=== PATIENT | female | born 1975 | race Caucasian/White ===

== ENCOUNTER 2023-09-16 19:01 | Observation (INO) | payer OTHER, SELFPAY ==
--- NOTE | 2023-09-05 17:11 | HP.PCM_ITS ---
History and Physical Date of Admission: 09/16/23 HPI: The patient is a 48 year old female presenting for pre-operative visit. She is scheduled for total laparoscopic hysterectomy with cystoscopy and bilateral salpingectomy. Possible conversion to total abdominal hysterectomy, possible mini laparotomy to morcellate uterus versus morcellation through the vagina., for uterine fibroids, abnormal uterine bleeding, failed Mirena IUD, pelvic pressure and bleeding due to fibroids on 09/16/23. Procedure discussed along with risks, benefits and complications. Other alternatives discussed for management. Consent form signed? Yes. ? ? PAST MEDICAL HISTORY PAST MEDICAL HISTORY Diagnosis Date ? Abdominal pain, right upper quadrant ? ? Abdominal pain, unspecified site ? ? Acute gastritis without mention of hemorrhage ? ? Encounter for insertion of mirena IUD 03/25/2011 ? Gilbert's syndrome ? ? Hypoglycemia, unspecified ? ? Personal history of urinary calculi ? ? PMH - PAST MEDICAL HISTORY OF ? ? high bilirubin ? ? PAST SURGICAL HISTORY PAST SURGICAL HISTORY Procedure Laterality Date ? EGD TRANSORAL BIOPSY SINGLE/MULTIPLE ? 08/13/08 ? MIRENA IUD ? 03/25/2011 ? URETEROTOMY INSERTION INDWELLING STENT ALL TYPES ? ? ? . There is a plastic bag ? CURRENT MEDICATIONS Current Outpatient Medications Medication Sig Dispense Refill ? fexofenadine HCl (SHERI ALLERGY ORAL) Take 1 tablet by mouth once daily. ? ? ? Olopatadine (PATADAY ONCE DAILY RELIEF) 0.2 % drop Use 1 Drop in both eyes twice daily. 5 mL 5 ? levonorgestrel (MIRENA) 20 mcg/24 hours (7 yrs) 52 mg IUD 1 Each by INTRAUTERINE route as directed. 1 Each 0 ? omeprazole (PRILOSEC) 20 mg capsule Take 1 capsule by mouth daily before breakfast. 1/2 hr before meal. 30 capsule 2 ? No current facility-administered medications for this visit. ? ? ALLERGIES: Cipro [Ciprofloxacin], Seasonal Allergies, and Singulair [Montelukast Sodium] ? PERSONAL HISTORY: SOCIAL HISTORY Social History ? Tobacco Use ? Smoking status: Never ? Smokeless tobacco: Never Vaping Use ? Vaping Use: Never used Substance Use Topics ? Alcohol use: Yes ? ? Comment: Occassionally ? Drug use: No ? FAMILY HISTORY: FAMILY HISTORY FAMILY HISTORY Problem Relation Age of Onset ? Thyroid Mother ? ? Breast Cancer Paternal Grandmother ? ? older ? Diabetes Maternal Aunt ? ? Heart Maternal Grandfather ? ? [place] ? Cancer Maternal Grandmother ? ? ? GENERAL: denies fevers or chills ENDOCRINOLOGY: has not been on steroids Cardiology : denies palpitations or chest pain Respiratory: denies SOB or cough Hematology: denies history of prolonged bleeding or easy bruising or VTE Allergy: Denies history of personal or family history of allergy to anesthesia ? PHYSICAL EXAMINATION: ? VITALS: Last menstrual period 02/19/2011. ? GENERAL: The patient is well nourished, well hydrated in no acute distress. , The patient is oriented to time, place, and person. NECK: Supple. No lynphadenopathy, normal thyroid, no thyromegaly. LUNGS: Clear to auscultation bilaterally. no wheezes, rhonchi or rales HEART: Regular rate and rhythm, Normal heart sounds, and No murmurs or gallops GENITALIA: Normal external genitalia, Urethral meatus normal, Bladder nontender, normal vagina and normal vaginal tone, normal cervix, normal uterus, size and consistency, normal adnexa without masses or tenderness, and perineum WNL WET PREP: Not indicated ? IMPRESSION: symptomatic uterine fibroids resulting in AUB, pelvic pressure sympomts and bloating ? PLAN: The risks/benefits/alternatives and personal involved for the planned total laparoscopic hysterectomy bilateral salpingectomy and cystoscopy, possible conversion to total abdominal hysterectomy, possible morcellation of the uterus through mini laparotomy with uterine morcellation through this or morcellation through the vagina the patient. Were reviewed with the patient. Her questions were answered to her satisfaction and she desires to proceed. Consent was signed. I reviewed with her postop instructions and expectations. ? ? I have reviewed and updated past medical and surgical history, medications and allergies DATE OF EXAM: Jun 23 2023 ?9:38AM ? WRU ? 1060 ?- ?US FEMALE PELVIS TRANSVAG ?/ PROCEDURE REASON: Uterine leiomyoma, unspecified location ?? ? * * * * Physician Interpretation * * * * ?EXAMINATION: ? TRANSVAGINAL AND LIMITED TRANSABDOMINAL FEMALE PELVIC ULTRASOUND CLINICAL HISTORY: Uterine fibroid. ?LMP: 05/22/2023 TECHNIQUE: Sonography of the pelvis was performed by transvaginal and transabdominal (limited) techniques. ?Images were obtained and stored in a permanent archive. MQ: ?[facility]_2021 COMPARISON: Ultrasound pelvis on 10/31/2020 RESULT: Bowel gas. Uterus: ?? ? -Size: 15.9 x 8.9 x 14.4 cm ?? ? -Orientation: Anteverted ?? ? -Endometrial echo complex: Evaluation of the endometrium was adequate. No endometrial abnormality. The endometrial echo complex measured 1.5 cm. An IUD is visualized in the endometrial canal, extending to the lower uterine segment, uncertain if it is related to large fibroid in the fundus and upper uterine body. ?? ? -Cervix: Unremarkable. ?? ? -Adenomyosis assessment: There are no sonographic findings of adenomyosis. ?? ? -Fibroids: Multiple fibroids identified. ?A large fibroid is again noted in the fundus and upper uterine body measuring 8.6 x 11.3 x 11 cm, previously 7.5 x 5.8 x 7.0 cm. ?2 smaller fibroids are visualized in the left uterine body, measuring 3.9 x 3.5 x 3.4 cm and 3.7 x 3.0 x 3.1 cm. Right Ovary: Not visualized. Left Ovary: Not visualized. Free Fluid: No abnormal free fluid is present. Assessment & Plan Assessment/Plan (1) Uterine fibroid: (2) Abnormal uterine bleeding (AUB): (3) Pelvic pressure in female:
[2023-09-12 16:32] LABS: Hematocrit 43.8 % (37-47); Hemoglobin 14.5 g/dL (12.0-15.0); Mean Corp Hgb Conc 33.1 g/dL (32-36); Mean Corpuscular Hgb 30.7 pg (27.0-32.0); Mean Corpuscular Volume 92.6 fL (81-99); Mean Platelet Vol. 9.2 fl (6.2-12.0); Platelet Count 283 K/mm3 (150-450); RBC Distribution Width CV 11.8 % (11.6-14.6); RBC Distribution Width SD 40.5 fl (35.1-43.9); Red Blood Count 4.73 M/mm3 (4.2-5.4); White Blood Count 5.3 K/mm3 (4.4-11.0)
[2023-09-12 17:00] LABS: Anion Gap 3 (5-15); BUN 12 mg/dL (7-18); BUN/Creat Ratio 19.9 RATIO (10-20); Calcium,Total 8.6 mg/dL (8.5-10.1); Chloride 108 mmol/L (98-107); EST Glomerular Filtration Rate 112 mL/min (>60); Est Glom Filt Rate - Afr Amer 136 mL/min (>60); Glucose 102 mg/dL (74-106); Magnesium 2.3 mg/dL (1.6-2.6); Potassium 3.8 mmol/L (3.5-5.1); Sodium Level 138 mmol/L (136-145)
[2023-09-16] VITALS (20 sets, daily range): BP systolic 94–126; BP diastolic 59–94; PULSE 65–96; RESP 10–18; TEMP 36.1–37.3; O2SAT 94–100; BMI 23.4; BMI 23.8
[2023-09-16 06:02] LABS: Internal QC Validated? YES +Cl - CLEAR BKGD; Pregnancy, Urine Negative Negative
[2023-09-16] MEDS: Lactated Ringers 1,000 ML 40 ML IV (06:06)
[2023-09-16] MEDS: Magnesium 1 GM over 15 mins IV (06:07)
[2023-09-16] MEDS: Phenazopyridine 95 MG Tablet 190 MG PO (06:23)
[2023-09-16] MEDS: Celecoxib 200 MG Capsule 400 MG PO (06:23)
[2023-09-16] MEDS: Acetaminophen 500 MG Tablet 1000 MG PO ×3 (06:23→22:43)
[2023-09-16] MEDS: Gabapentin 600 MG Tablet PO (06:23)
[2023-09-16] MEDS: Enoxaparin 40 MG/0.4 ML Syringe SC (06:24)
[2023-09-16] MEDS: Scopolamine 1mg/72hr Patch 1 PATCH TD (06:24)
[2023-09-16 06:50] LABS: Bedside Glucose 81 mg/dL (74-106)
--- NOTE | 2023-09-16 07:30 | HYST_PTH ---
PATIENT: LUCAS CASTRO LOC: MS3 U#:[id number] AGE/SX: 48/F ROOM: RI314 RE09/16/[address]: Dr. Sarah Bliss MD : 1975 BED: 1 DIS: 09/17/2023 SPEC #: [id number] RECD: 09/16/23 10:40 STATUS: HÉCTOR REConrado #: [id number] DELMI: 09/16/23 07:[address]: Sarah Bliss DEPT: SURGICAL PATHOLOGY RECD BY: Prerna Horowitz ENTERED: 09/16/23 11:11 SP TYPE: HYSTERECT OTHR DR: Dr. Timbo Reich MD Tissues: Uterus, NOS Procedures: Surgery Specimen Level V HEADER OPERATION: ERAS, diagnostic laparoscopy, possible total laparoscopic hysterectomy PRE-OP DIAGNOSIS: Abnormal uterine bleeding TISSUE SUBMITTED: Cervix, uterus, bilateral fallopian tubes and left ovary MICROSCOPIC DIAGNOSIS Uterus, hysterectomy: Cervix - squamous metaplasia and minimal chronic inflammation. Endometrium - scant unremarkable endometrium. Myometrium - leiomyomas. Fallopian tubes - benign paratubal cysts. Ovary - hemorrhagic corpus luteal cysts. AM:saida 09/19/2023 COMMENT Case has been reviewed in consultation with Dr. Sands who concurs with the above diagnosis. IDC:SJ MICROSCOPIC DESCRIPTION Slides are reviewed. GROSS DESCRIPTION Received in fixative is one container labeled with the patient's name and designated cervix, uterus, bilateral fallopian tubes and left ovary. The specimen consists of a hysterectomy specimen in multiple pieces. The largest piece consists of body of the uterus and one wall of cervix and detached pieces of nodular masses, detached pieces of body of the uterus and detached portion of other wall of the cervix. Also present in in the container is a detached T-shaped intrauterine device. The elongated portion of T measures 3.0 cm in length and horizontal portion measures 3.5 cm in length. A two-prong suture is also present and measures 7.0 cm in length. Also present in the container are two detached bilateral fallopian tubes and one ovary identified as left ovary. The right and left ovary are not identified. The uterus with cervix in multiple pieces weighs in aggregate 947 gm. The largest piece of uterus with cervix measures 25.0 x 13.0 x 9.0 cm. The serosal surface is zarate, glistening. The ectocervical mucosa is unremarkable. The external os contour cannot be determined due to fragmented nature of the specimen. The endocervical canal measures 4.0 cm in length. The endocervical mucosa is zarate, glistening and unremarkable. The endometrial cavity could not be clearly identified. The largest piece of uterus reveals a large nodular mass measuring 20.0 cm in greatest dimension. Attached pieces of tissue also show two nodular masses measuring 3.5 and 5.0 cm in greatest dimension. Sections of these masses reveal zarate whorled cut surfaces without areas of hemorrhage, necrosis or cystic degeneration. Sections of the largest nodular mass reveals focal area of hemorrhage. Sections of this piece also reveal two nodular masses. The endometrial cavity could not be identified in any of the uterine pieces. The fallopian tubes each measure 5.0 cm in length and 0.5 cm in diameter. The fimbrial ends are identified. Sections reveal unremarkable cut surfaces. The soft to cystic ovary measures 5.0 x 2.5 x 2.0 cm. Sections reveal multiple cysts. The largest cyst measures 1.5 cm in greatest dimension. The largest piece of uterus predominantly consists of a fibroid. Sample Paster sections are submitted in 14 cassettes as follows: 1?& 2 - cervix, 3 & 4 - myometrial wall, possible endometrial lining, 5 & 6 - largest nodular mass, 7??smaller nodular mass in the largest piece of uterus, 8 & 9 - detached nodular masses, 10??detached piece of uterine wall, 11 - one fallopian tube, 12 - second fallopian tube, 13 & 14 - ovary identified as left. / SUAD:saida 09/16/2023 TC: 1 CPT: 20889
[2023-09-16] MEDS: Cefazolin 2 GM in 0.9% Normal Saline (100mL Bag) 100 ML IV (07:31)
[2023-09-16] MEDS: dexAMETHasone 4 MG/ML Vial 8 MG IV (07:56)
[2023-09-16] MEDS: Bupivacaine Mpf 0.5% 30 ML VIAL (08:50)
[2023-09-16] MEDS: Lidocaine 1% /Epi 1:100 (50ml) 50 ML VIAL (09:00)
--- NOTE | 2023-09-16 10:31 | OP.PCM_ITS ---
Problems Associated Problem List Diagnoses (1) Pelvic pressure in female: (2) Abnormal uterine bleeding (AUB): (3) Uterine fibroid: Report of Operation Date of Procedure: 09/16/23 Pre-Operative Diagnosis: aub, pelvic pressure, uterine fibroids Post-Operative Diagnosis: Same Surgery/Procedure Performed:: LAVH greater than 250 gm uterus, with LSO and right salpingectomy and cystoscopy Description of Surgical Findings:: enlarged uterus w/ multiple fibroids Surgeon: Sarah Bliss dairy and food laboratory assistant: Allie Burdick Type of Anesthesia: General Anesthesiologist: Shiva Oleary Special Medications: none Specimen's removed: uterus, cervix, bilateral tubes and left ovary- uterus wt 9752 gm Drains: none Estimated Blood Loss (mL): 150 Fluids Replaced: 1500 mL Description of Procedure: The patient was taken to the operating room where she was prepped and draped in the dorsal lithotomy position. Her arms were tucked to the side and padded and her legs were placed in the yellowfin stirrups. Care was taken to ensure that she was placed in a neurologically safe and neutral position. A weighted speculum was placed in the vagina and the anterior lip of the cervix was grasped with a single-tooth tenaculum. The uterus sounded to 12 centimeters. The 3 cm uterine medical imaging technician was placed and secured. The Shepherd catheter was placed to straight drain. Attention was turned to the abdominal portion of the case. Before skin incisions were made they were infiltrated with 0.5% Marcaine solution for local anesthetic. A 5 mm midline incision approximately 3 cm above the umbilicus was made and while tenting the anterior abdominal wall up with towel clamps a 5 mm blade less trocar and sleeve were advanced directly into the peritoneal cavity. Peritoneal placement was confirmed with the laparoscope the pneumoperitoneum was created, and the underlying abdominal contents were intact. The patient was placed in Trendelenburg and the above findings were noted. Right and left lateral 5 mm trochars were placed under direct visualization without difficulty. The antimesenteric portion of the tube was clamped sealed and transected serially on both sides with the LigaSure device. The round ligaments were clamped sealed and transected and a window was made in the peritoneum. The utero-ovarian ligaments were then clamped, sealed and transected with the LigaSure device and the pedicles were hemostatic The bladder flap was dissected down with the LigaSure device and blunt dissection and the uterine arteries were then skeletonized. The uterine arteries were clamped, sealed and transected on both sides with the LigaSure device. At this point the pedicles were all examined and found to be hemostatic. Attention was turned to the vaginal portion of the case. 1% lidocaine with dilute epinephrine solution was used to infiltrate the anterior vaginal epithelium over the cervix. An incision was made from around the entire vaginal epithelium and the vaginal epithelium was dissected back with blunt sharp dissection. The anterior colpotomy incision was made. The posterior colpotomy was made sharply. The uterosacral ligaments were clamped, transected and suture-ligated and were hemostatic. The lower part of the cardinal ligament with the uterine arteries was clamped, transected and suture-ligated. There is small amount of peritoneum and cardinal ligament left. This was clamped, transected and suture-ligated.. Hemostasis was noted. An attempt was made to bring the uterus out vaginally and bivalve the uterus and then perform myomectomies. After performing approximately 3 myomectomies and debulking the uterus somewhat it was still approximately 14 weeks size. There is a fibroid that made it very difficult to bring anything down into safe visualization vaginally. After approximately 15 minutes of morcellating the uterus vaginally a mini laparotomy was made. This was made above the symphysis pubis and carried through to underlying layer of fascia with the scalpel. Marcaine was used to infiltrate the incision before the incision was made. The fascia was dissected the midline fascia dissected off the rectus muscles. The peritoneum was entered sharply. Small Placido O retractor was placed. The uterus was grasped and brought up to the incision. Then began to pour out part of the uterus until was made small enough to deliver through the laparotomy incision. From above the cuff was difficult to reach. There was some active bleeding noted from the left infundibulopelvic ligament. It was felt that securing this would significantly compromise the left ovarian blood flow. The right ovary was normal and the pedicles were hemostatic. Decision was made to clamp across the infundibulopelvic ligament transect and seal it with the LigaSure device. Hemostasis was then noted from above. The vaginal cuff was closed from below. I placed a modified Neumann's suture thr ough the posterior cuff reefed across to the right uterosacral ligament back across to the left and back out through the midline of the vagina. The angles were then closed with 0 Vicryl sutures. The remainder the vagina was closed in a horizontal fashion with interrupted 0 Vicryl [id number] sutures. The Neumann suture was then tied down. From above the pedicles appeared hemostatic. Cystoscopy was then performed and both ureteral jets were noted. The bladder was intact. The instruments and Placido O retractor from above were removed. The peritoneum and rectus muscles were closed en bloc with an 0 Vicryl suture. The fascia was closed with #1 Vicryl suture. The skin was closed with Monocryl in a subcuticular fashion. Dr. Ireland provided tissue manipulation, retraction and visualization as long as as well as camera guidance and closure of the abdominal portion of the case. The port sites were all removed by Dr. Ireland and the skin incisions closed with Monocryl suture. The incisions were all covered with skin glue. The surgery was performed by me with assistance other than the portions dictated as above. There were no qualified residents available for this procedure. All sponge lap and needle counts were correct and the patient was transferred to the recovery room in stable condition. Grafts/Implants Used: none Procedure Start Time: 07:59 Procedure Stop Time: 10:41 Complications none Admit VTE Documentation VTE Present on Admission: No VTE Mechan Device Prophylaxis: SCD's VTE Pharm Prophylaxis ordered?: Yes
--- NOTE | 2023-09-16 10:44 | DCINST_ITS ---
Discharge Instructions Diet Discharge Diet: Light diet - advance as tolerated Activity Discharge Activity: May Not Drive (while on pain medications) May shower in (days): 1 May resume sexual activity in: 6-8 weeks and - (Nothing in your vagina for 6 weeks. No vaginal or anal intercourse for 6-8 weeks) Dressing / Incision Call your doctor if your incision/area has: Continuous Slow Oozing, Sudden Increased Bleeding, Increased Pain/ Swelling and Foul Smelling Discharge Call your doctor if you observe: Inability to urinate and Using more than 1 pad per hour Cleanse incision/area with: Soap & Water and - (Your incisions have skin glue, it can get wet, leave the glue on until it falls off. ) Follow Up Care Please Follow Up With: Sarah Bliss MD When: With my office in 1-2 and 6 weeks or as needed. [phone]. send a [employer] message with any nonurgent questions Test Results: Test results from this visit will be discussed in further detail at your follow- up appointment, if applicable. Discharge Plan Admission Primary Reason for Your Visit: Hysterectomy Attending Provider: Sarah Bliss Primary Care Provider: Timbo Reich Discharge Orders/Prescriptions Prescriptions: New ibuprofen [ibuprofen] 600 mg tablet 600 mg PO Q6H PRN (Reason: Pain) 20 Days Qty: 60 1RF oxycodone 5 mg tablet 5 mg PO Q6H PRN PRN (Reason: severe pain) 7 Days Qty: 10 0RF Continued levonorgestrel [Mirena] 20 mcg/24 hr (5 years) intrauterine device 1 insert Intrauterine ONCE cholecalciferol (vitamin D3) [Thera-D] 50 mcg (2,000 unit) tablet 2,000 unit PO DAILY olopatadine 0.2 % drops 1 drp EACH EYE DAILY omeprazole 20 mg capsule,delayed release(DR/EC) 20 mg PO DAILY Discontinued fexofenadine-pseudoephedrine 180-240 mg tablet extended release 24 hr 1 tab PO DAILY Disposition Disposition (needs filled in before D/C Order can be placed): Home, Self Care
[2023-09-16] MEDS: Lactated Ringers @ 40 MLS/HR 40 ML IV (11:51)
[2023-09-16] MEDS: Ketorolac 30 MG/ML Syringe IV ×2 (14:02→22:43)
--- NOTE | 2023-09-16 14:18 | SUR.PHASEI ---
DR OATES TO PACU TO CHECK ON PT, PT VERY TIRED. CBC ORDERED. PT HAS HAD SEVERAL ATTEMPTS TO GET ON BEDPAN WITH NO URINE OUTPUT. PT BLADDER SCANNED FOR 720 ML, PT SITTING ON BEDSIDE COMMODE ATTEMPTING TO VOID.
[2023-09-16 14:22] LABS: Hematocrit 49.6 % (37-47); Hemoglobin 16.3 g/dL (12.0-15.0); Mean Corp Hgb Conc 32.9 g/dL (32-36); Mean Corpuscular Hgb 30.6 pg (27.0-32.0); Mean Corpuscular Volume 93.2 fL (81-99); Mean Platelet Vol. 9.1 fl (6.2-12.0); Platelet Count 302 K/mm3 (150-450); RBC Distribution Width CV 11.8 % (11.6-14.6); RBC Distribution Width SD 40.7 fl (35.1-43.9); Red Blood Count 5.32 M/mm3 (4.2-5.4); White Blood Count 10.9 K/mm3 (4.4-11.0)
[2023-09-16] MEDS: Lactated Ringers 1,000 ML 75 ML IV (19:35)
[2023-09-16] MEDS: Docusate Sodium 100 MG Capsule PO (22:44)
[2023-09-17 02:47] VITALS: BP 108/75; PULSE 69; RESP 16; TEMP 36.6; O2SAT 100
[2023-09-17] MEDS: Ibuprofen 600 MG Tablet PO (02:53)
[2023-09-17] MEDS: Acetaminophen 500 MG Tablet 1000 MG PO (05:59)
[2023-09-17] MEDS: Ketorolac 30 MG/ML Syringe IV (06:04)
[2023-09-17 06:06] VITALS: BP 123/77; PULSE 63; RESP 16; TEMP 36.6; O2SAT 100
[2023-09-17 07:22] LABS: Hematocrit 37.1 % (37-47); Hemoglobin 12.2 g/dL (12.0-15.0); Mean Corp Hgb Conc 32.9 g/dL (32-36); Mean Corpuscular Hgb 30.7 pg (27.0-32.0); Mean Corpuscular Volume 93.5 fL (81-99); Mean Platelet Vol. 9.3 fl (6.2-12.0); Platelet Count 253 K/mm3 (150-450); RBC Distribution Width CV 11.9 % (11.6-14.6); RBC Distribution Width SD 40.7 fl (35.1-43.9); Red Blood Count 3.97 M/mm3 (4.2-5.4); White Blood Count 6.4 K/mm3 (4.4-11.0)
[2023-09-17] MEDS: Docusate Sodium 100 MG Capsule PO (08:11)
[2023-09-17] MEDS: Ensure Plus High Protein 120 ML LIQUID PO (08:11)
[2023-09-17 10:06] VITALS: BP 116/76; PULSE 61; RESP 18; TEMP 36.7; O2SAT 100
--- NOTE | 2023-09-17 10:41 | PCM.PN.BLA ---
Progress Note Pain well controlled. Average lochia. Voided 200 cc x 2 this morning and 600 cc. No nausea or vomiting. Ambulating and tolerating regular diet. Physical Exam Narrative Awake, alert, no acute distress Incisions clean dry and intact. Abdomen soft, appropriate tenderness, nondistended. Assessment & Plan Assessment/Plan (1) Postoperative pain: PLAN: Plan Postop day #1 status post laparoscopic-assisted vaginal hysterectomy with LSO and right salpingectomy and mini laparotomy to remove the uterus. Doing well. Hemoglobin stable. Discharged home with routine instructions. Already has prescriptions
== END 2023-09-17 10:59 | disposition home or self-care (01) ==
LOC: MS3 19:39 → SDC 19:48 → MS3 19:48
PROVIDERS: Anesthesiology; Admitting Provider Advanced Practice Midwife; PCP Family Medicine; Referring Provider Obstetrics & Gynecology; Visit Provider Obstetrics & Gynecology
PROC: 0UT9FZZ Resection of Uterus, Via Natural or Artificial Opening With Percutaneous Endoscopic Assistance (ICD-10-PCS; CPT 58554; principal; 2023-09-16 07:05)
DX: D25.9 Leiomyoma of uterus, unspecified (principal); N93.9 Abnormal uterine and vaginal bleeding, unspecified; N83.12 Corpus luteum cyst of left ovary; N87.9 Dysplasia of cervix uteri, unspecified; K21.9 Gastro-esophageal reflux disease without esophagitis; Z79.899 Other long term (current) drug therapy
CPT/HCPCS: 58554; 00944; 36415; 80048; 81025; 82962; 83735; 85027; 86850; 86900; 86901; 88307; 96361; 96374; 96376; 99221; J7120; G0378; J2405; J3475